=== PATIENT | male | born 1955 | race Caucasian/White ===

== ENCOUNTER 2017-11-01 22:44 | Emergency (ER) | payer MEDICAID ==
--- NOTE | 2017-11-01 22:51 | EDPHY ---
H & P Stated Complaint: syncope after smoking marijuana pt was incontient and has head abrasions Time Seen by Provider: 11/01/17 22:51 HPI/ROS: HPI CHIEF COMPLAINT: Syncope, ingestion of alcohol and marijuana tonight. HISTORY OF PRESENT ILLNESS: 62-year-old male, otherwise healthy no significant medical history does not take any daily medications presents emergency room after he had 2 mixed drinks of alcohol this evening, additionally smoked marijuana. He was sitting down in a chair he got lightheaded he stood up and got worsening lightheadedness, nauseous, and had a syncopal episode with head strike. Denies chest pain or shortness of breath, denies palpitations. Past Medical History: No medical history Past Surgical History: No recent surgery Social History: Alcohol this evening, marijuana this evening Family History: Noncontributory ROS REVIEW OF SYSTEMS: 10 Systems were reviewed and negative with the exception of the elements mentioned in the history of present illness. Exam Constitutional nontoxic triage nursing summary reviewed, vital signs reviewed, awake/alert. Eyes normal conjunctivae and sclera, EOMI, PERRLA. HENT head/neck: Abrasion to the right forehead, no midline neck pain, no step -offs, moist mucus membranes, no epistaxis, neck supple/ no meningismus, no raccoon eyes. Respiratory clear to auscultation bilaterally, normal breath sounds, no respiratory distress, no wheezing. Cardiovascular rate normal, regular rhythm, no murmur, no edema, distal pulses normal. Gastrointestinal soft, non-tender, no rebound, no guarding, normal bowel sounds, no distension, no pulsatile mass. Genitourinary no CVA tenderness. Musculoskeletal no midline vertebral tenderness, full range of motion, no calf swelling, no tenderness of extremities, no meningismus, good pulses, neurovascularly intact. Skin pink, warm, & dry, no rash, skin atraumatic. Neurologic awake, alert and oriented x 3, AAOx3, moves all 4 extremities equally, motor intact, sensory intact, CN II-XII intact, normal cerebellar, normal vision, normal speech. Psychiatric normal mood/affect. Heme/Lymph/Immune no lymphadenopathy. Differential Diagnosis: Includes but is not limited to in a particular order closed-head injury, intracranial bleed, skull fracture, vasovagal syncope, orthostatic syncope, dehydration, electrolyte disturbance, alcohol intoxication , drug intoxication, syncope due to the combination of dehydration, alcohol use and marijuana use. Medical Decision Making: Plan for this patient workup for syncope including blood work, EKG, given that he struck his head has obvious head trauma and alcohol marijuana beer board he will have a CT scan of his head without contrast Re-evaluation: EKG interpretation by me on record in [facility] system. Impression time of EKG 2322, sinus rhythm rate of 75 no signs of acute ischemia. No signs of cardiac arrhythmia. Unremarkable EKG. CT scan head without contrast negative for acute traumatic injury called to me by Dr. Salmeron. Reason for CT scan head without syncopal episode, head trauma , alcohol intoxication. Troponin 0.00. ED x-ray chest one view negative for acute cardiopulmonary disease. 1251: Patient resting comfortably, no complaints, denies chest pain or shortness of breath. Feels well after IV fluids. Would like to go home. He is unremarkable EKG, negative troponin, CT scan head without contrast was unremarkable for trauma. Will encourage patient's stay well-hydrated drink lots of fluids. Additionally return if another syncopal episode Most likely had a syncopal episode due to alcohol and marijuana. Source: Patient - Personal History Current Tetanus/Diphtheria Vaccine: Yes Current Tetanus Diphtheria and Acellular Pertussis (TDAP): Yes - Medical/Surgical History Hx Asthma: No Hx Chronic Respiratory Disease: No Hx Diabetes: No Hx Cardiac Disease: No Hx Renal Disease: No Hx Cirrhosis: No Hx Alcoholism: No Hx HIV/AIDS: No Hx Splenectomy or Spleen Trauma: No Other PMH: appy, hernia surgery - Social History Smoking Status: Never smoked Constitutional: Initial Vital Signs Temperature (C) 36.5 C 11/01/17 22:45 Heart Rate 83 11/01/17 22:45 Respiratory Rate 16 11/01/17 22:45 Blood Pressure 125/68 H 11/01/17 22:45 O2 Sat (%) 94 11/01/17 22:45 O2 Delivery Mode Room Air Allergies/Adverse Reactions: No Known Allergies Allergy (Unverified 11/01/17 22:48) Home Medications: Medication Instructions Recorded NK [No Known Home Meds] 11/01/17 Medical Decision Making - Diagnostics Imaging Results: Imaging Impressions Head CT 11/01/17 23:01 Impression: There is no acute intracranial abnormality identified on this unenhanced CT evaluation. If there is further clinical concern regarding the patient's symptoms, MR imaging is suggested, if not otherwise contraindicated. Findings were discussed with Dean Nixon MD at 23:27, on 11/01/2017. Chest X-Ray 11/01/17 23:02 Impression: Normal. - Data Points Laboratory Results: Laboratory Results 11/01/17 23:05 11/01/17 23:05 11/01/17 11/01/17 11/01/17 23:38 23:05 23:05 WBC RBC Hgb Hct MCV MCH MCHC RDW Plt Count MPV Neut % (Auto) Lymph % (Auto) Bracken % (Auto) Eos % (Auto) Baso % (Auto) Nucleat RBC Rel Count Absolute Neuts (auto) Absolute Lymphs (auto) Absolute Monos (auto) Absolute Eos (auto) Absolute Basos (auto) Absolute Nucleated RBC Immature Gran % Immature Gran # PT 14.3 SEC SEC (12.0-15.0) INR 1.09 (0.83-1.16) APTT 26.5 SEC SEC (23.0-38.0) Sodium 139 mEq/L mEq/L (135-145) Potassium 3.6 mEq/L mEq/L (3.3-5.0) Chloride 100 mEq/L mEq/L (97-110) Carbon Dioxide 26 mEq/l mEq/l (22-31) Anion Gap 13 mEq/L mEq/L (8-16) BUN 18 mg/dL mg/dL (7-23) Creatinine 1.2 mg/dL mg/dL (0.7-1.3) Estimated GFR > 60 Glucose 133 mg/dL H mg/dL (70-100) Calcium 9.2 mg/dL mg/dL (8.5-10.4) Magnesium 2.1 mg/dL mg/dL (1.6-2.3) Total Bilirubin 0.4 mg/dL mg/dL (0.1-1.4) Conjugated Bilirubin 0.1 mg/dL mg/dL (0.0-0.5) Unconjugated Bilirubin 0.3 mg/dL mg/dL (0.0-1.1) AST 27 IU/L IU/L (17-59) ALT 36 IU/L IU/L (21-72) Alkaline Phosphatase 47 IU/L IU/L (38-126) POC Troponin I 0.00 ng/mL ng/mL (0.00-0.08) NT-Pro-B Natriuret Pep 27 pg/mL pg/mL (0-125) Total Protein 6.8 g/dL g/dL (6.3-8.2) Albumin 4.4 g/dL g/dL (3.5-5.0) Ethyl Alcohol 11 mg/dL H mg/dL (0-10) 11/01/17 23:05 WBC 10.12 10^3/uL H 10^3/uL (3.80-9.50) RBC 4.87 10^6/uL 10^6/uL (4.40-6.38) Hgb 16.2 g/dL g/dL (13.7-17.5) Hct 45.2 % % (40.0-51.0) MCV 92.8 fL fL (81.5-99.8) MCH 33.3 pg pg (27.9-34.1) MCHC 35.8 g/dL g/dL (32.4-36.7) RDW 12.4 % % (11.5-15.2) Plt Count 278 10^3/uL 10^3/uL (150-400) MPV 9.2 fL fL (8.7-11.7) Neut % (Auto) 51.0 % % (39.3-74.2) Lymph % (Auto) 38.0 % % (15.0-45.0) Bracken % (Auto) 7.1 % % (4.5-13.0) Eos % (Auto) 2.6 % % (0.6-7.6) Baso % (Auto) 1.1 % % (0.3-1.7) Nucleat RBC Rel Count 0.0 % % (0.0-0.2) Absolute Neuts (auto) 5.16 10^3/uL 10^3/uL (1.70-6.50) Absolute Lymphs (auto) 3.85 10^3/uL H 10^3/uL (1.00-3.00) Absolute Monos (auto) 0.72 10^3/uL 10^3/uL (0.30-0.80) Absolute Eos (auto) 0.26 10^3/uL 10^3/uL (0.03-0.40) Absolute Basos (auto) 0.11 10^3/uL H 10^3/uL (0.02-0.10) Absolute Nucleated RBC 0.00 10^3/uL 10^3/uL (0-0.01) Immature Gran % 0.2 % % (0.0-1.1) Immature Gran # 0.02 10^3/uL 10^3/uL (0.00-0.10) PT INR APTT Sodium Potassium Chloride Carbon Dioxide Anion Gap BUN Creatinine Estimated GFR Glucose Calcium Magnesium Total Bilirubin Conjugated Bilirubin Unconjugated Bilirubin AST ALT Alkaline Phosphatase POC Troponin I NT-Pro-B Natriuret Pep Total Protein Albumin Ethyl Alcohol Medications Given: Discontinued Medications Sodium Chloride (Ns) 1,000 mls @ 0 mls/hr IV EDNOW ONE; Wide Open PRN Reason: Protocol Stop: 11/01/17 23:02 Last Admin: 11/01/17 23:23 Dose: 1,000 mls Sodium Chloride (Ns) 1,000 mls @ 0 mls/hr IV ONCE ONE PRN Reason: Wide Open Stop: 11/01/17 23:05 Last Admin: 11/01/17 23:23 Dose: 1,000 mls Point of Care Test Results: Chemistry 11/01/17 23:38 POC Troponin I 0.00 ng/mL ng/mL (0.00-0.08) Departure - Departure Disposition: Home, Routine, Self-Care Clinical Impression: Syncope Qualifiers: Syncope type: unspecified Qualified Code(s): R55 - Syncope and collapse Condition: Good Instructions: Syncope (ED) Additional Instructions: 1. Stay well-hydrated drink lots of fluids. 2. Return emergency room if you have worsening symptoms questions or concerns. Referrals: Rene Wallace [Primary Care Provider] - As per Instructions
[2017-11-01] MEDS ORDERED: NS 1,000 ML IV ONE ×2 (23:01→23:04)
[2017-11-01 23:15] LABS: PLATELET COUNT 278 10^3/uL (150-400)
[2017-11-01 23:22] LABS: INR 1.09 (0.83-1.16); PROTIME(PATIENT) 14.3 SEC (12.0-15.0)
[2017-11-02 01:15] VITALS: BP 129/81
--- NOTE | 2017-11-03 05:47 | CPEKG ---
Test Reason : OPEN Blood Pressure : / mmHG Vent. Rate : 075 BPM Atrial Rate : 075 BPM P-R Int : 144 ms QRS Dur : 100 ms QT Int : 385 ms P-R-T Axes : 075 070 030 degrees QTc Int : 430 ms Sinus rhythm Confirmed by Dean Nixon ([id number]) on 11/03/2017 5:47:03 AM Referred By: Confirmed By:Dean Nixon
== END 2017-11-02 01:15 | disposition home or self-care (01) ==
DX: R55 Syncope and collapse (principal); S00.81XA Abrasion of other part of head, initial encounter; W18.39XA Other fall on same level, initial encounter; F12.90 Cannabis use, unspecified, uncomplicated; E86.9 Volume depletion, unspecified
CPT/HCPCS: 84484-PO; G0480